=== PATIENT | female | born 1940 | race Caucasian/White ===

== ENCOUNTER 2016-05-31 09:04 | Emergency (ER) | payer MEDICARE, BC ==
[~2016-05-31 09:04] MED LIST: CALTRATE-600 D600 MG PO; CELEBREX100 MG PO; FLAGYL500 MG PO; LIPITOR DPS10 MG PO; MYRBETRIQ25 MG PO; SYNTHROID100 MCG PO; VITAMIN B COMP1 EACH PO; VITAMIN D31000 UNIT PO; ZANTAC DPS150 MG PO; ZESTORETIC 20/11 TAB PO
--- NOTE | 2016-06-24 21:30 | ER ---
ADMIT: 05/31/2016 RM/LOC: ER [facility] MR#: [id number] [address] [id number] JOSE MALIK [address] [place], [place] [id number] Emergency Room Report SEX: F AGE: 76 : 1940 DATE: 05/31/2016 This 76-year-old comes to the Emergency Department with 2-3 days worth of abdominal pain and diarrhea with blood streaks in it. See T-sheet for remainder of history and physical. CBC revealed a white count of 12.1. Electrolytes were significant for creatinine of 1.2, a total bilirubin of 2.3. CT scan of the abdomen and pelvis was suspicious for colitis. The patient was given a prescription for Zofran, encouraged to push fluids, and to follow up with her doctor on Thursday. DIAGNOSIS: Colitis. Zurdo Montana MD/ yesica JOB #: [id number] CC: Zurdo Montana MD, Attending Physician
== END 2016-05-31 11:29 | disposition home or self-care (01) ==
LOC: ER 09:04
DX: K52.9 Noninfective gastroenteritis and colitis, unspecified (principal); I10 Essential (primary) hypertension; E03.9 Hypothyroidism, unspecified; Z88.0 Allergy status to penicillin; Z79.82 Long term (current) use of aspirin; Z79.899 Other long term (current) drug therapy

== ENCOUNTER 2016-06-05 18:41 | Emergency (ER) | payer MEDICARE, BC ==
--- NOTE | 2016-06-24 21:31 | ER ---
ADMIT: 06/05/2016 RM/LOC: ER [facility] MR#: [id number] [facility] [address] [place], [place] [id number] JOSE MALIK Jeffery [address] [place], [place] [id number] Emergency Room Report SEX: F AGE: 76 : 1940 DATE: 06/05/2016 ADDENDUM: This patient comes to the ER because she is having pain in her right hip. She has had it for the last week. She was seen in the ER where they gave her some medication. It did seem to help. She then went to Urgent Care today. They gave her Flexeril, and after taking the Flexeril, her noted that she made some very odd comments about somebody being on the roof. She denies making the comment states she feels fine and her thoughts are fine. She has not had any difficulty walking aside from the hip pain that she has had. She has been eating and drinking normally. On physical exam, the patient does have pain in her right hip, but I am able to move and extend her hip. Lungs are clear. Her abdomen is soft. She is alert and oriented and answers questions and speaks appropriately without any difficulty. Her CBC and BMP were normal. Urinalysis was also normal. We will have her discontinue the Flexeril, and she does have Olmito at home, which she has not been taking, but she should take, and she is to follow up with Dr. Shimon Anthony on Thursday if not feeling better. Please see my T-sheet. KATEY Jack / Zurdo Montana MD / marsl JOB #: [id number] CC: Zurdo Montana MD, Attending Physician Shimon Anthony MD, Family Physician
== END 2016-06-05 23:00 | disposition home or self-care (01) ==
LOC: ER 18:41
DX: M25.551 Pain in right hip (principal); I10 Essential (primary) hypertension; E03.9 Hypothyroidism, unspecified; E78.00 Pure hypercholesterolemia, unspecified; Z90.49 Acquired absence of other specified parts of digestive tract